=== PATIENT | female | born 1935 | race Caucasian/White ===

== ENCOUNTER 2016-10-04 10:14 | Inpatient (IN) | payer OTHER ==
[~2016-10-04] VITALS: Ht 170.2 cm; Wt 72.6 kg
[~2016-10-04 10:14] MED LIST: AMLODIPINE BESY10 M1 PO; LOVASTATIN40 M1 PO; PLAVIX75 M1 PO
--- NOTE | 2016-10-04 10:21 | NUR ---
CINDY FROM HOME AFTER CHIKING ON ENSURE THIS AM, HAS HAD DECREASED PO INTAKE X 1 WEEK. PT IS NON-VERBAL S/P CVA 209. ACCU CHECK [facility].
[2016-10-04 10:49] LABS: ABSOLUTE BASOPHIL COUNT 0.1 /CUMM (0.0-0.2); ABSOLUTE EOSINOPHIL COUNT 0 /CUMM (0.0-0.7); ABSOLUTE GRANULOCYTE CT 39.9 /CUMM (1.4-6.5); ABSOLUTE LYMPH COUNT 0.8 /CUMM (1.2-3.4); BASOPHIL % 0.2 % (0.0-2.0); EOSINOPHIL % 0.1 % (0-5); GRANULOCYTE % 95.4 % (42.2-75.2); HEMATOCRIT 37.6 % (37-47); MEAN CORPUSCULAR HGB 30.1 PG (27.0-31.0); MEAN CORPUSCULAR HGB CONC 34.3 G/DL (33.0-37.0); MEAN PLATELET VOLUME 10.2 FL (7.4-10.4); PLATELET COUNT 309 /CUMM (130-400); RBC DISTRIBUTION WIDTH 13.1 % (11.5-14.5); RED BLOOD CELL CT 4.28 /CUMM (4.20-5.40)
[2016-10-04 11:04] LABS: WHITE BLOOD CELL COUNT 41.8 /CUMM (4.8-10.8)
--- NOTE | 2016-10-04 11:04 | NUR ---
CRITICAL TEST RESULTS [id number] QUETA BAINS 81 F TESTS AND RESULTS: WBC 41.8 Results received and read back by: DICK MARC Results received date and time: 10/04/16 1104 The following provider was notified of the results, and read the results back: DR. SALMON Notified date and time: 10/04/16 at 1105
--- NOTE | 2016-10-04 11:27 | NUR ---
DR SALMON TO [facility].
--- NOTE | 2016-10-04 11:30 | ED DYSPNEA/ASTHMA COMPLAINT ---
History of Present Illness General Chief Complaint: General Adult Stated Complaint: BIBA S/P CHOKING Source: patient, old records, EMS Exam Limitations: unable to give history, COMPLETE APHASIA SECONDARY TO cva Vital Signs & Intake/Output Vital Signs & Intake/Output ED Intake and Output 10/06 0000 10/05 1200 Intake Total 500 Output Total Balance 500 Intake, IV 500 Number 1 Bowel Movements Allergies Coded Allergies: NO KNOWN ALLERGIES (03/27/16) Reconcile Medications Amlodipine Besylate 10 MG TABLET 1 TAB PO DAILY BP (Reported) Clopidogrel Bisulfate (Plavix) 75 MG TABLET 1 TAB PO DAILY BLOOD THINNER ( Reported) Lovastatin 40 MG TABLET 1 TAB PO DAILY CHOLESTEROL (Reported) Triage Note: BIBA FROM HOME AFTER CHIKING ON ENSURE THIS AM, HAS HAD DECREASED PO INTAKE X 1 WEEK. PT IS NON-VERBAL S/P CVA 209. [facility]U CHECK [facility]. Triage Nurses Notes Reviewed? yes HPI: Patient presents for evaluation of a choking episode that occurred prior to arrival. 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 Since the patient has had decreasing PO intake and has refused any solid food. Her nutritional intake and says primarily of liquid meal replacements and yogurt. Past History Travel History Traveled to [place] past 21 day No Medical History Any Pertinent Medical History? see below for history Neurological: dementia, CVA 2009 TIA 2013 EENT: NON-VERBAL Cardiovascular: hypertension Respiratory: NONE Gastrointestinal: diverticulitis, COLOSTOMY REVERSAL PARTIAL BOWEL RESECTION PEG TUBE REVERSAL Hepatic: NONE Renal: NONE Musculoskeletal: NONE Psychiatric: NONE Endocrine: NONE Blood Disorders: NONE Cancer(s): NONE History of MRSA: No History of VRE: No History of CDIFF: No Surgical History Surgical History: none Psychosocial History What is your primary language Surinamese Tobacco Use: Never used ETOH Use: denies use Family History Hx Contributory? No Review of Systems Review of Systems Constitutional: Reports: no symptoms. EENTM: Reports: no symptoms. Respiratory: Reports: see HPI. Cardiovascular: Reports: no symptoms. GI: Reports: no symptoms. Genitourinary: Reports: no symptoms. Musculoskeletal: Reports: no symptoms. Skin: Reports: no symptoms. Neurological/Psychological: Reports: no symptoms. Hematologic/Endocrine: Reports: no symptoms. Immunologic/Allergic: Reports: no symptoms. All Other Systems: Reviewed and Negative Physical Exam Physical Exam Respiratory: SEE BELOW Comments: Gen.: Well-nourished, well-developed, mild respiratory distress. Head: Normocephalic, atraumatic. Eyes: Normal inspection bilaterally Ears: Normal inspection bilaterally Nose: Normal inspection Throat/mouth : Moist mucosa Neck: Supple, full range of motion, no goiter, no stridor Heart: Regular rate and rhythm, no murmurs rubs or gallops Lungs: Clear to auscultation bilaterally with normal air entry Chest: Nontender Back: Normal range of motion Abdomen: Soft, nondistended, normal bowel sounds Extremities: equal radial pulses, no cyanosis clubbing or edema Neurologic: Cranial nerves grossly intact, unable to assess speech Skin: warm and dry Psychiatric:, Since, unable to assess due to dense aphasia Core Measures ACS in differential dx? No Severe Sepsis Present: No Septic Shock Present: No Progress Differential Diagnosis: ESOPHAGEAL FOOD IMPACTION, ASPIRATION Plan of Care: Orders Procedure Date/time Status OXYGEN 10/05 UNK Complete OXYGEN DAILY CHARGE 10/05 UNK Complete Diagnostic Imaging: Discussed w/RAD: CT Scan. Radiology Impression: PATIENT: QUETA BAINS PRESENT AGE: 81 PATIENT ACCOUNT NO: [id number] : 33 LOCATION: [facility] ORDERING PHYSICIAN: JOSE SALMON MD SERVICE DATE: 10/04/16 EXAM TYPE: CAT - CT ABD & PELVIS W/O IV CONTRAS; CT CHEST WO IV CONTRAST EXAMINATION: CT CHEST WITHOUT IV CONTRAST CT ABDOMEN AND PELVIS WITHOUT IV CONTRAST CLINICAL INFORMATION: 81-year-old female with choking episode, abdominal distention and aphasia. Presumptive diagnosis of bowel obstruction, aspiration and esophageal food impaction COMPARISON: Abdomen and pelvis CT, 08/21/2016 TECHNIQUE: Noncontrast, multidetector CT imaging examination of the chest, abdomen and pelvis was performed. Axial images are displayed at 5 mm and 0.625 mm slice thickness. Coronal and sagittal reformatted images were generated at the technologist's workstation and submitted for review. DLP: 334 mGy-cm FINDINGS: CHEST - LUNGS and PLEURA: The trachea and central airways are widely patent and normal in caliber. Within the lower lobes, posteriorly, there are patchy opacities that are new compared to 08/21/2016 -- probably a combination of atelectasis and consolidation. No interstitial pulmonary edema, pleural effusion or pneumothorax. There is a 0.3 cm noncalcified nodule at the right lung apex ( image 75, series 4. There is a 0.3 cm noncalcified nodule within the left upper lobe (image 155, series 4). MEDIASTINUM: There is mild cardiomegaly and mild atherosclerotic calcification of coronary arteries. The thoracic aorta is calcified and the ascending aorta measures up to 4 cm AP and 3.9 cm transverse. The esophagus has normal wall thickness and there is no evidence of food impaction within the esophageal lumen. Within the visualized lower neck, the thyroid gland is unremarkable. No pneumomediastinum. No pericardial effusion. LYMPHATICS: No pathologic sized axillary, hilar or mediastinal lymph nodes. CHEST WALL/BONES: Bone density is diffusely decreased. Osteoarthritis of both glenohumeral joints. No acute fracture or malalignment in the mildly degenerated thoracic spine. ABDOMEN AND PELVIS - HEPATOBILIARY: Liver has normal size, contour and parenchymal attenuation. No focal hepatic lesion observed on these noncontrast images. Gallbladder is unremarkable there is no intrahepatic or extrahepatic bile duct dilatation. PANCREAS: The pancreas is atrophied. No peripancreatic edema or pancreatic ductal dilatation. SPLEEN: Unremarkable. ADRENAL GLANDS: Unremarkable. KIDNEYS, URETERS, BLADDER: There is moderate atrophy of the right kidney without nephrolithiasis or hydronephrosis. The left kidney is normal in size and has a few cysts. The ureters are normal in caliber. The urinary bladder is unremarkable. GASTROINTESTINAL TRACT: The stomach has normal wall thickness. Small bowel is normal in caliber. Large amount of stool is present within the rectum which is distended to 9.2 cm transverse diameter. There is no rectal wall thickening or perirectal inflammatory change. There is an intact rectosigmoid anastomosis. ABDOMINAL WALL: There is chronic atrophy of the abdominal wall muscles and fascial weakness with broad area of bulging of the left abdominal wall. At the superior margin of the abdominal wall bulge, there is a fascial defect with herniation of fat and nondilated small bowel into the subcutaneous compartment (images 68-71, series 2). There is no evidence of bowel incarceration. VASCULAR: Atherosclerotic calcification of the tortuous abdominal aorta which measures up to 2.4 cm maximum AP diameter. LYMPH NODES: No pathologic sized lymph nodes within the abdomen or pelvis. PELVIC VISCERA: The uterus and adnexa are unremarkable. OSSEOUS STRUCTURES: There is multilevel facet osteoarthritis of the lumbar spine and there is 0.7 cm grade 1 anterolisthesis of L4 on L5. No suspicious bone lesions. IMPRESSION: 1. Compared to 08/21/2016, there are new patchy opacities in the lower lobes, likely a combination of atelectasis and pneumonia. No evidence of food impaction within the esophagus. 2. 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 3. Fecal impaction within the rectum without bowel obstruction. 4. Chronic atrophy/weakness of the abdominal wall musculature and fascia. Broad left-sided abdominal wall bulge is seen, as well as a more focal abdominal wall hernia containing fat and small bowel at the superior margin of the bulge. There is no evidence of bowel incarceration. 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 <Electronically signed in Other Vendor System> SIGNED BY: MUNA LEONARDO MD 10/04/16 1320 Initial ED EKG: SINUS TACHYCARDIA WITH A VENTRICULAR RATE OF 116 Prior EKG: unchanged (EXCEPT FOR RATE) Departure Departure Disposition: STILL A PATIENT Condition: Stable Clinical Impression Primary Impression: Pneumonia Qualifiers: Pneumonia type: aspiration pneumonia Aspiration pneumonia type: unspecified Laterality: bilateral Lung location: lower lobe of lung Qualified Code: J69.0 - Pneumonitis due to inhalation of food and vomit Secondary Impressions: Constipation Leukocytosis Qualifiers: Leukocytosis type: other Qualified Code: D72.828 - Other elevated white blood cell count Ventral hernia Qualifiers: Obstruction and gangrene presence: without obstruction or gangrene Qualified Code: K43.9 - Ventral hernia without obstruction or gangrene Referrals: JAYLA ROMO,FRANCESCA Baires (PCP/Family) Departure Forms: Customer Survey General Discharge Information Admission Note Spoke With: TANIYA ROMO,REMA Aragon Documentation of Exam: Documentation of any treatments & extenuating circumstances including Concerns Regarding Discharge (functional status, medication knowledge or non-compliance, living conditions, etc.) that warrant an admission rather than observation: Patient has multi lobar likely aspiration pneumonia with an associated profound leukocytosis. Given her advanced age and medical comorbidities I feel she is at very high risk of hypoxia, respiratory failure, sepsis and . She has had a very poor nutritional intake recently consisting of primarily liquids and yogurt. This has resulted in a poor functional capacity placing her at an even greater risk of poor outcome. I feel she now requires an aggressive management with IV antibiotics and close clinical monitoring of vital signs and pulse oximetry. The patient's what blood cell count should be monitored for improvement. If the white blood cell count does not improve then hematology oncology consultation should be considered along with infectious disease consultation. The patient's dense aphasia will make her care extremely challenging given the lack of history or review of systems by the patient. I feel her treatment and recovery will be prolonged and complicated. She will require a multiple day hospitalization. Critical Care Note Critical Care Note Critical Care Time: 30-74 min
--- NOTE | 2016-10-04 12:00 | NUR ---
MEDICATED WITH ATIVAN (SEE MAR)
--- NOTE | 2016-10-04 12:46 | NUR ---
PT STRAIGHT CATHED BY IRWIN Harry RN PT HAD 1100ML URINE OBTAINED. PT TO CAT.
--- NOTE | 2016-10-04 13:20 | CT SCAN REPORT ---
EXAMINATION: CT CHEST WITHOUT IV CONTRAST CT ABDOMEN AND PELVIS WITHOUT IV CONTRAST CLINICAL INFORMATION: 81-year-old female with choking episode, abdominal distention and aphasia. Presumptive diagnosis of bowel obstruction, aspiration and esophageal food impaction COMPARISON: Abdomen and pelvis CT, 08/21/2016 TECHNIQUE: Noncontrast, multidetector CT imaging examination of the chest, abdomen and pelvis was performed. Axial images are displayed at 5 mm and 0.625 mm slice thickness. Coronal and sagittal reformatted images were generated at the technologist's workstation and submitted for review. DLP: 334 mGy-cm FINDINGS: CHEST - LUNGS and PLEURA: The trachea and central airways are widely patent and normal in caliber. Within the lower lobes, posteriorly, there are patchy opacities that are new compared to 08/21/2016 -- probably a combination of atelectasis and consolidation. No interstitial pulmonary edema, pleural effusion or pneumothorax. There is a 0.3 cm noncalcified nodule at the right lung apex (image 75, series 4. There is a 0.3 cm noncalcified nodule within the left upper lobe (image 155, series 4). MEDIASTINUM: There is mild cardiomegaly and mild atherosclerotic calcification of coronary arteries. The thoracic aorta is calcified and the ascending aorta measures up to 4 cm AP and 3.9 cm transverse. The esophagus has normal wall thickness and there is no evidence of food impaction within the esophageal lumen. Within the visualized lower neck, the thyroid gland is unremarkable. No pneumomediastinum. No pericardial effusion. LYMPHATICS: No pathologic sized axillary, hilar or mediastinal lymph nodes. CHEST WALL/BONES: Bone density is diffusely decreased. Osteoarthritis of both glenohumeral joints. No acute fracture or malalignment in the mildly degenerated thoracic spine. ABDOMEN AND PELVIS - HEPATOBILIARY: Liver has normal size, contour and parenchymal attenuation. No focal hepatic lesion observed on these noncontrast images. Gallbladder is unremarkable there is no intrahepatic or extrahepatic bile duct dilatation. PANCREAS: The pancreas is atrophied. No peripancreatic edema or pancreatic ductal dilatation. SPLEEN: Unremarkable. ADRENAL GLANDS: Unremarkable. KIDNEYS, URETERS, BLADDER: There is moderate atrophy of the right kidney without nephrolithiasis or hydronephrosis. The left kidney is normal in size and has a few cysts. The ureters are normal in caliber. The urinary bladder is unremarkable. GASTROINTESTINAL TRACT: The stomach has normal wall thickness. Small bowel is normal in caliber. Large amount of stool is present within the rectum which is distended to 9.2 cm transverse diameter. There is no rectal wall thickening or perirectal inflammatory change. There is an intact rectosigmoid anastomosis. ABDOMINAL WALL: There is chronic atrophy of the abdominal wall muscles and fascial weakness with broad area of bulging of the left abdominal wall. At the superior margin of the abdominal wall bulge, there is a fascial defect with herniation of fat and nondilated small bowel into the subcutaneous compartment (images 68-71, series 2). There is no evidence of bowel incarceration. VASCULAR: Atherosclerotic calcification of the tortuous abdominal aorta which measures up to 2.4 cm maximum AP diameter. LYMPH NODES: No pathologic sized lymph nodes within the abdomen or pelvis. PELVIC VISCERA: The uterus and adnexa are unremarkable. OSSEOUS STRUCTURES: There is multilevel facet osteoarthritis of the lumbar spine and there is 0.7 cm grade 1 anterolisthesis of L4 on L5. No suspicious bone lesions. IMPRESSION: 1. Compared to 08/21/2016, there are new patchy opacities in the lower lobes, likely a combination of atelectasis and pneumonia. No evidence of food impaction within the esophagus. 2. 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 3. Fecal impaction within the rectum without bowel obstruction. 4. Chronic atrophy/weakness of the abdominal wall musculature and fascia. Broad left-sided abdominal wall bulge is seen, as well as a more focal abdominal wall hernia containing fat and small bowel at the superior margin of the bulge. There is no evidence of bowel incarceration.
[2016-10-04 14:21] LABS: PT 12.6 SEC (9.4-12.5); PTT 30 SEC (25-37)
--- NOTE | 2016-10-04 15:31 | History & Physical ---
ALEX SPARKS 10/04/16 1530: General Information and HPI MD Statement: I have seen and personally examined QUETA BAINS and documented this H&P. 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 Brought in by ambulance for episode of choking earlier today. Daughter who is the POA and niece at bedside provided most of the history. Stated that after the last admission they noticed deterioration since the past 4 weeks. She has been having decreasing by mouth intake. And she now currently is on liquid diet at home. Earlier today daughter notice a choking episode and this prompted her to bring her to the ED. Family also noted increased work of breathing yesterday. Family has also noticed that she has been very physically one month ago she was able to walk however she slowly stop walking and now is mostly bedbound and incontinent of urine and stool. No fever or productive cough noted. On interview patient was able to nod to communicate that she was having difficulty breathing and did not have any abdominal pain. Of note patient has not been able to have any further medications since the past few days as she either spits it out and does not swallow. Allergies/Medications Allergies: Coded Allergies: NO KNOWN ALLERGIES (03/27/16) Home Med list Amlodipine Besylate 10 MG TABLET 1 TAB PO DAILY BP (Reported) Clopidogrel Bisulfate (Plavix) 75 MG TABLET 1 TAB PO DAILY BLOOD THINNER ( Reported) Lovastatin 40 MG TABLET 1 TAB PO DAILY CHOLESTEROL (Reported) Compliance With Home Meds: GOOD Past History Travel History Traveled to [place] past 21 day No Medical History Neurological: dementia, CVA 2008 EENT: NON-VERBAL Cardiovascular: hypertension Respiratory: NONE Gastrointestinal: diverticulitis, COLOSTOMY REVERSAL PARTIAL BOWEL RESECTION PEG TUBE REVERSAL Hepatic: NONE Renal: NONE Musculoskeletal: NONE Psychiatric: NONE Endocrine: NONE Blood Disorders: NONE Cancer(s): NONE History of MRSA: No History of VRE: No History of CDIFF: No Surgical History Surgical History: none Past Family/Social History Psychosocial History Where do you live? Home Who Do You Live With? child Services at Home: Home Health Aide Smoking Status: Never Smoked ETOH Use: denies use Functional Ability ADLs Independent: dressing, eating, toileting, bathing. Ambulation: non-ambulatory IADLs Independent: shopping, housework, finances, food prep, telephone, transportation , medication admin. Review of Systems Review of Systems Constitutional: Reports: see HPI. Exam & Diagnostic Data Last 24 Hrs of Vital Signs/I&O Vital Signs Date Time Temp Pulse Resp B/P Pulse O2 O2 Flow FiO2 Ox Delivery Rate 10/04 1639 100.3 111 32 120/75 95 Room Air 10/04 1515 98.7 113 18 140/83 94 10/04 1234 117 32 133/79 90 Room Air 10/04 1210 96.6 115 18 124/71 94 10/04 1022 99.0 115 38 105/59 97 Room Air Intake & Output 10/04 1600 10/04 0800 10/04 0000 Intake Total 250 Output Total 1100 Balance -850 Intake, IV 250 Output, Urine 1100 Patient 160 lb Weight Physical Exam General Appearance Mild Distress, awake HEENT Atraumatic, PERRLA, EOMI, dry mucous membranes Neck Supple, No JVD, No thryomegaly Lymphatic Cervical nl Cardiovascular Normal S1, Normal S2 Lungs left lower crackles Abdomen Normal Bowel Sounds, Soft, No Tenderness Extremities No Edema Diagnostic Data EKG Results Sinus Tachycardia, RBBB Other Results CT ABD & PELVIS W/O IV CONTRAS; CT CHEST WO IV CONTRAST IMPRESSION: 1. Compared to 08/21/2016, there are new patchy opacities in the lower lobes, likely a combination of atelectasis and pneumonia. No evidence of food impaction within the esophagus. 2. 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 3. Fecal impaction within the rectum without bowel obstruction. 4. Chronic atrophy/weakness of the abdominal wall musculature and fascia. Broad left-sided abdominal wall bulge is seen, as well as a more focal abdominal wall hernia containing fat and small bowel at the superior margin of the bulge. There is no evidence of bowel incarceration. 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 MAXIMUM TEMPERATURE 100.3, WBC 41.8 with left shift and no bandemia, elevated BUN and creatinine. Imaging showing new patchy opacities in the lower lobes, fecal impaction within rectum without bowel obstruction. As Ranked By This Provider Problem List: 1. Aspiration pneumonia Assessment/Plan febrile with elevated WBC will start IV unasyn pending BC and sensitivities 2. THOMAS (acute kidney injury) Assessment/Plan most likely pre renal azotemia due to poor PO intake elevated ALP and transaminitis will hydrate with IVF and continue to monitor 3. Fecal impaction Assessment/Plan per daughter she had and episode of diarrhea two days ago will reasses the need for bowel regimen if she continues to be constipated 4. DVT prophylaxis Assessment/Plan sc heparin 5. DNR (do not resuscitate) 6. DNI (do not intubate) Core Measures/Miscellaneous Acute Coronary Syndrome ACS Diagnosis: No Cerebrovascular Accident CVA/TIA Diagnosis: No Congestive Heart Failure CHF Diagnosis: No Venous Thromboembolism VTE Risk Factors: Age > 40, Immobility, paresis VTE Prophylaxis Ordered Inpt: Pharm- Heparin No Mech VTE prophylaxis d/t: No contraindications No VTE Pharm Prophylaxis d/t: No contraindications VTE Diagnosis: No VTE Type: NONE VTE Confirmed by (Test): NONE Severe Sepsis Severe Sepsis Present: No Septic Shock Septic Shock Present: No Miscellaneous Documentation Attending Case Discussed With: REMA MONAHAN MD Primary Care Physician: FRANCESCA DICKERSON MD Patient sees these Specialists None Level of Patient Care: General Medicine KIP SARABIA MDVITHA 10/04/161937: Resident Review Statement Resident Statement: examined this patient, discussed with grinder set up operator internal, agreed with grinder set up operator internal, discussed with family, reviewed EMR data (avail) Other Findings: 81-year-old female with past medical history of hypertension, CVA in 2008 with aphasia, hyperlipidemia presented to the ED after a choking episode this morning. This morning the daughter noticed that she has been choking on liquids and was found to be in respiratory distress Patient lives with his daughter who is the caregiver. Patient was recently admitted in [facility] for diarrhea and urinary tract infection. According to the daughter she has been declining rapidly since then. Has been not able to eat solids and has been on liquids over the last 1 month. Also complains of poor by mouth intake within the same period of time. Even though she is nonverbal patient is able to move her extremities which also has declined over the same period of time. Today can be examined her she was able to answer simple questions by nodding her head. Nonverbal at baseline. On examination Patient awake, in mild distress HEENT: Pupils equal and reactive, dry mucous membrane next and respiratory: Bilateral rhonchi present, crackles present in the left lung base Cardio vascular: S1, S2 regular, no murmurs Abdomen: Soft, nontender Extremities: No pedal edema Neurology: And obtain a limited to clinical presentation next Pertinent labs: WBC 41.8, BUN 99, creatinine 2.3, total bilirubin 2.6, AST ALT 104, 214. CT showed left lower lobe opacity Assessment and plan 1. Leukocytosis secondary to pneumonia as evidenced in the CAT scan: We will admit the patient to general medical floor. Will start her on Unasyn 3000 every 12, renally adjust pending blood sputum and urine cultures. We'll start her on IV fluids D5 half normal saline at 100 mL an hour. TRC nebulizes. 2. Altered mental status secondary to septemia/pneumonia: Will keep patient nothing by mouth, swallow eval in a.m., head and admission, aspiration precautions. Avoid benzos. If mentation versus would consider getting CAT scan of the head. IV fluids as mentioned above. 3. Acute on chronic kidney disease: See due to prerenal. Will hydrate. Patient has h/o stage III CKD. Follow-up creatinine in a.m. 4. Transaminitis: With elevated total bilirubin: Etiology unclear could be secondary to dehydration Will recheck LFTs in a.m. 5. History of stroke: Will hold Plavix as patient nothing by mouth. 6. Hypertension and hyperlipidemia Will hold both her medications and restart once cleared by swallow. DNR/DNI DVT prophylaxis with heparin REMA MONAHAN 10/08/16 1320: Attending MD Review Statement Attending Statement Attending MD Statement: examined this patient, discuss w/resident/PA/UNDER SEAL OPERATOR, agreed w/resident/PA/UNDER SEAL OPERATOR, discussed with family, reviewed EMR data (avail) Attending Assessment/Plan: Please see my separate attending note from day of admission for more details.
--- NOTE | 2016-10-04 16:20 | NUR ---
HOUSE STAFF TO JONAS.
--- NOTE | 2016-10-04 16:28 | NUR ---
PT HAS BED ASSIGNMENT 219-2
--- NOTE | 2016-10-04 17:00 | NUR ---
REPORT CALLED, TRANSPORT CALLED.
[2016-10-04 18:28] VITALS: BP 116/64
--- NOTE | 2016-10-04 19:43 | Admission Certification ---
Admission Certification Certification Statement - As attending physician, I certify that at the time of - admission, based on clinical presentation, severity of - symptoms, need for further diagnostic testing and - therapeutic interventions, and risk of adverse outcomes - without in-hospital treatment, in my clinical assessment, - this patient requires an acute hospital stay for a minimum - of two nights or longer. I have also considered psychsocial - factors such as support system, advanced age, financial - issues, cognitive issues, and failed out-patient treatments, - past re-admission history, safety of patient, and lack of - compliance as applicable. Specific rationale supporting this admission is: aspiration pneumonia and failure to thrive and Acute kidney injury.
--- NOTE | 2016-10-04 19:46 | PN- Att Addend ---
Attending MD Review Statement Attending Statement Attending MD Statement: examined this patient, discuss w/resident/PA/PAPER REWINDER OPERATOR, agreed w/resident/PA/PAPER REWINDER OPERATOR, discussed with family, reviewed EMR data (avail) Attending Assessment/Plan: aspiration pneumonia - anaerobic vs gram negative pneumonia. WBC of 41.8 with bandemia. Start on iv unasyn, NPO, IV fluids, swallow eval in am . D/w pts granddaughter at bedside the care plan. Pt does not want any artificial nutrition, would like to be comfort care if no improvement in swallowing. Acute on chronic renal failure -Azotemia with bun of 99 and cr of 2.3. IV fluids , recehck in am. Code status- dnr/dni d/w family the care plan.
[2016-10-04 20:33] VITALS: BP 140/60
--- NOTE | 2016-10-04 21:25 | RADIOLOGY REPORT ---
EXAMINATION: XR PORTABLE CHEST CLINICAL INFORMATION: Shortness of breath COMPARISON: Chest CT scan dated 10/04/2016 at 90 7:00 PM TECHNIQUE: Portable view of the chest was obtained. FINDINGS: The x-rays is taken with rotation toward the right side. There is mild cardiomegaly. Dilated tortuous thoracic aorta. The pulmonary vasculature is within normal limits. Pulmonary opacities at the lung bases can represent atelectatic changes. No large pleural effusions or pneumothorax. IMPRESSION: 1. Mild cardiomegaly. 2. Dilated tortuous thoracic aorta. 3. Bibasilar opacities, likely represent atelectatic changes. Clinical correlation for pneumonia is suggested.
[2016-10-04 23:52] VITALS: BP 140/62
--- NOTE | 2016-10-05 01:31 | NUR ---
1745 PATIENT ARRIVED TO FLOOR. PATIENT IS ALERT. DENIES CHEST PAIN. BED LOW AND LOCKED. CALL LIGHT WITHIN REACH ECONOMICS TEACHER AND RESPIRATORY THERAPY NOTIFIED ABOUT PATIENTS RESPIRATORY RATE AND HR WILL CONTINUE TO MONITOR
[2016-10-05 09:23] LABS: ABSOLUTE BASOPHIL COUNT 0 /CUMM (0.0-0.2); ABSOLUTE EOSINOPHIL COUNT 0 /CUMM (0.0-0.7); ABSOLUTE LYMPH COUNT 0.8 /CUMM (1.2-3.4); BASOPHIL % 0 % (0.0-2.0); EOSINOPHIL % 0 % (0-5)
[2016-10-05 10:14] LABS: ABSOLUTE GRANULOCYTE CT 41.4 /CUMM (1.4-6.5); ABSOLUTE MONOCYTE COUNT 0.6 /CUMM (0.10-0.60); MEAN CORPUSCULAR HGB 30.1 PG (27.0-31.0); MEAN CORPUSCULAR HGB CONC 33.5 G/DL (33.0-37.0); MEAN CORPUSCULAR VOLUME 89.7 FL (81.0-99.0); MEAN PLATELET VOLUME 10.5 FL (7.4-10.4); PLATELET COUNT 279 /CUMM (130-400); RBC DISTRIBUTION WIDTH 13.7 % (11.5-14.5)
[2016-10-05 10:30] LABS: WHITE BLOOD CELL COUNT 42.8 /CUMM (4.8-10.8)
[2016-10-05 10:31] LABS: HEMATOCRIT 32.3 % (37-47)
[2016-10-05 10:50] LABS: GRANULOCYTE % 96.6 % (42.2-75.2)
--- NOTE | 2016-10-05 12:42 | PN- Att Addend ---
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 Patient is aphasic and minimally responsive, and per family has had deterioration over the past month. In addition, labs show acute on chronic kidney injury with evidence of pre-renal azotemia. Had discussion with family at bedside. They reported that the patient had expressed in the past that she never wants artificial nutrition. Patient is DNR /DNI. Family is considering hospice placement. Family meeting will take place today. Laboratory Tests 10/05/16 0810: Anion Gap 16, Estimated GFR 16 L, BUN/Creatinine Ratio 36.8 H, Total Bilirubin 0.9, Direct Bilirubin 0.6 H, AST 45 H, ALT 76 H, Alkaline Phosphatase 163 H, Total Protein 5.9 L, Albumin 2.5 L, CBC w Diff NO MAN DIFF REQ, RBC 3.60 L, MCV 89.7, MCH 30.1, RDW 13.7, MPV 10.5 H, Gran % 96.6 H, Lymphocytes % 2.0 L, Monocytes % 1.4 L, Eosinophils % 0, Basophils % 0 L, Absolute Granulocytes 41.4 H, Absolute Lymphocytes 0.8 L, Absolute Monocytes 0.6, Absolute Eosinophils 0, Absolute Basophils 0, PUBS MCHC 33.5 10/04/16 1404: Anion Gap 16, Estimated GFR 20 L, BUN/Creatinine Ratio 43.0 H, Glucose 141 H, Calcium 8.9, Total Bilirubin 2.6 H, AST 40 H, ALT 104 H, Alkaline Phosphatase 214 H, Total Protein 7.0, Albumin 3.1 L, Globulin 3.9, Albumin/Globulin Ratio 0.8 L, PT 12.6 H, INR 1.20 H, APTT 30 1. Aspiration pneumonia 2. Acute on chronic kidney injury 3. Pre-renal azotemia 4. Aphasia 5. History of CVA 6. Neutrophilia (Leukemoid reaction) 7. Dysphagia Plan - Continue on general medicine - Speech and swallow evaluation - Will hold off on further blood tests and imaging until after family meeting - May continue IV hydration and Unasyn - Follow culture results - Hold on nephrology evaluation for now - Chest physiotherapy with suctioning for comfort - If secretions worsen may add scopolamine patch - Hospice referral - DVT PPx
--- NOTE | 2016-10-05 13:20 | PN- Housestaff ---
Subjective Follow-up For: Aspiration Deconditioning Dyspnea Subjective: Seen and examined patient continues to have decreased by mouth intake and tachypneic. nonverbal at baseline. Review of Systems Constitutional: Reports: see HPI. Objective Last 24 Hrs of Vital Signs/I&O Vital Signs Date Time Temp Pulse Resp B/P Pulse O2 O2 Flow FiO2 Ox Delivery Rate 10/05 0122 36 10/05 0000 96 Room Air 10/04 2352 98.7 114 28 140/62 96 10/04 2033 99.9 123 40 140/60 93 10/04 1828 98.8 114 28 116/64 95 10/04 1745 95 Room Air 10/04 1639 100.3 111 32 120/75 95 Room Air 10/04 1515 98.7 113 18 140/83 94 Intake & Output 10/05 1600 10/05 0800 10/05 0000 Intake Total 500 0 Output Total Balance 500 0 Intake, IV 500 Intake, Oral 0 Number 1 Bowel Movements Patient 160 lb Weight Physical Exam General Appearance: Alert, Mild Distress Cardiovascular: Normal S1, Normal S2 Lungs: bilateral crackles Abdomen: Soft, No Tenderness Current Medications: Current Medications Sig/Khalif Start time Last Medication Dose Route Stop Time Status Admin Acetaminophen 1,000 MG Q12P PRN 10/04 1745 AC 10/04 IV 2030 Ampicillin Sodium/ 3,000 MG Q12 10/04 2200 AC 10/05 Sulbactam Sodium IV 1025 Sodium Chloride 100 ML Azithromycin 500 MG ONCE ONE 10/04 1415 DC 10/04 Sodium Chloride 250 ML IV 10/04 1514 1423 Ceftriaxone Sodium 0 .STK-MED ONE 10/04 1416 DC .ROUTE Ceftriaxone Sodium 1,000 MG ONCE ONE 10/04 1415 DC 10/04 IV 10/04 1416 1423 Dextrose/Sodium 1,000 ML .[id number] 10/04 1730 DC 10/05 Chloride IV 10/05 1234 1028 Heparin Sodium 5,000 UNIT Q8 10/04 1728 TX 10/05 (Porcine) SC 0506 Patient Medication 1 UNIT ONE NR 10/04 1745 TX Teaching ED 10/04 1800 Patient Medication 1 UNIT ONE NR 10/04 1745 [facility] ED 10/04 1800 Last 24 Hrs of Lab/Imer Results Last 24 Hrs of Labs/Mics: Laboratory Tests 10/05/16 0810: Anion Gap 16, Estimated GFR 16 L, BUN/Creatinine Ratio 36.8 H, Total Bilirubin 0.9, Direct Bilirubin 0.6 H, AST 45 H, ALT 76 H, Alkaline Phosphatase 163 H, Total Protein 5.9 L, Albumin 2.5 L, CBC w Diff NO MAN DIFF REQ, RBC 3.60 L, MCV 89.7, MCH 30.1, RDW 13.7, MPV 10.5 H, Gran % 96.6 H, Lymphocytes % 2.0 L, Monocytes % 1.4 L, Eosinophils % 0, Basophils % 0 L, Absolute Granulocytes 41.4 H, Absolute Lymphocytes 0.8 L, Absolute Monocytes 0.6, Absolute Eosinophils 0, Absolute Basophils 0, PUBS MCHC 33.5 10/04/16 1404: Anion Gap 16, Estimated GFR 20 L, BUN/Creatinine Ratio 43.0 H, Glucose 141 H, Calcium 8.9, Total Bilirubin 2.6 H, AST 40 H, ALT 104 H, Alkaline Phosphatase 214 H, Total Protein 7.0, Albumin 3.1 L, Globulin 3.9, Albumin/Globulin Ratio 0.8 L, PT 12.6 H, INR 1.20 H, APTT 30 Microbiology 10/04 1733 LOWER RESP: Respiratory Culture - CAN Cancelled: SPECIMEN NOT RECEIVED IN LABORATORY 10/04 1733 LOWER RESP: Gram Stain - CAN Cancelled: SPECIMEN NOT RECEIVED IN LABORATORY 10/04 1404 BLOOD: Blood Culture - RES Assessment/Plan Assessment: 81 year old woman with past medical history significant for hypertension, 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 MAXIMUM TEMPERATURE 100.3, WBC 41.8 with left shift and no bandemia, elevated BUN and creatinine. Imaging showing new patchy opacities in the lower lobes, fecal impaction within rectum without bowel obstruction. Continues to have no by mouth intake and tachypneic at rest. Family meeting was had this morning with her daughters one of them her POA. They declined any invasive measures such as tube feeding, Farfan placement. They have decided to make the patient to hospice. Will obtain a hospice consult and patient to be made hospice today. Problem List: 1. THOMAS (acute kidney injury) 2. Leukocytosis 3. Aspiration pneumonia 4. Fecal impaction Pain Ratin Pain Location: Not applicable Pain Goal: Pain 4 or less Pain Plan: Current regimen Tomorrow's Labs & Rationales: None required
--- NOTE | 2016-10-05 13:25 | Discharge Summary ---
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 Admitted to [facility] on 10/04/2016 for episode of aspiration. Daughter who is the POA and niece at bedside provided most of the history. Stated that after the last admission they noticed deterioration since the past 4 weeks. She had been having decreasing by mouth intake and was on liquid diet at home. Family has also noticed that she has been very physically one month ago she was able to walk however she slowly stopped walking and now is mostly bedbound and incontinent of urine and stool. Denied fever or productive cough . On interview patient was able to nod to communicate that she was having difficulty breathing and did not have any abdominal pain. Vitals on admission: Tmax 100.3, pulse 111, respiratory rate 32, blood pressure 105/59, saturating 97 on room air Pertinent labs: WBC 41.8, BUN 99, creatinine 2.3, total bilirubin 2.6, AST ALT 104, 214. CT showed left lower lobe opacity Was admitted to the general medicine floor the following issues were addressed: Sepsis secondary to Aspiration pneumonia She was initially started on IV Unasyn and IV fluids. Day 2 of admission her elevated white count continued to persist and she had no by mouth intake. Despite IV hydration her creatinine and BUN worsened. Discussed with family regarding options of management in terms of nephro consult winters placement, imaging and tube feeds. Family meeting was done with her daughters and her daughter who is the POA. They wish to make patient hospice and did not want any invasive measures including Winters tube placement and tube feeds. Hospice was consulted. Complications: made hospice Allergies: Coded Allergies: NO KNOWN ALLERGIES (03/27/16) Significant Procedures: - CT ABD & PELVIS W/O IV CONTRAS; CT CHEST WO IV CONTRAST CHEST - LUNGS and PLEURA: The trachea and central airways are widely patent and normal in caliber. Within the lower lobes, posteriorly, there are patchy opacities that are new compared to 08/21/2016 -- probably a combination of atelectasis and consolidation. No interstitial pulmonary edema, pleural effusion or pneumothorax. There is a 0.3 cm noncalcified nodule at the right lung apex (image 75, series 4. There is a 0.3 cm noncalcified nodule within the left upper lobe (image 155, series 4). MEDIASTINUM: There is mild cardiomegaly and mild atherosclerotic calcification of coronary arteries. The thoracic aorta is calcified and the ascending aorta measures up to 4 cm AP and 3.9 cm transverse. The esophagus has normal wall thickness and there is no evidence of food impaction within the esophageal lumen. Within the visualized lower neck, the thyroid gland is unremarkable. No pneumomediastinum. No pericardial effusion. LYMPHATICS: No pathologic sized axillary, hilar or mediastinal lymph nodes. CHEST WALL/BONES: Bone density is diffusely decreased. Osteoarthritis of both glenohumeral joints. No acute fracture or malalignment in the mildly degenerated thoracic spine. ABDOMEN AND PELVIS - HEPATOBILIARY: Liver has normal size, contour and parenchymal attenuation. No focal hepatic lesion observed on these noncontrast images. Gallbladder is unremarkable there is no intrahepatic or extrahepatic bile duct dilatation. PANCREAS: The pancreas is atrophied. No peripancreatic edema or pancreatic ductal dilatation. SPLEEN: Unremarkable. ADRENAL GLANDS: Unremarkable. KIDNEYS, URETERS, BLADDER: There is moderate atrophy of the right kidney without nephrolithiasis or hydronephrosis. The left kidney is normal in size and has a few cysts. The ureters are normal in caliber. The urinary bladder is unremarkable. GASTROINTESTINAL TRACT: The stomach has normal wall thickness. Small bowel is normal in caliber. Large amount of stool is present within the rectum which is distended to 9.2 cm transverse diameter. There is no rectal wall thickening or perirectal inflammatory change. There is an intact rectosigmoid anastomosis. ABDOMINAL WALL: There is chronic atrophy of the abdominal wall muscles and fascial weakness with broad area of bulging of the left abdominal wall. At the superior margin of the abdominal wall bulge, there is a fascial defect with herniation of fat and nondilated small bowel into the subcutaneous compartment (images [id number], series 2). There is no evidence of bowel incarceration. VASCULAR: Atherosclerotic calcification of the tortuous abdominal aorta which measures up to 2.4 cm maximum AP diameter. LYMPH NODES: No pathologic sized lymph nodes within the abdomen or pelvis. PELVIC VISCERA: The uterus and adnexa are unremarkable. OSSEOUS STRUCTURES: There is multilevel facet osteoarthritis of the lumbar spine and there is 0.7 cm grade 1 anterolisthesis of L4 on L5. No suspicious bone lesions. IMPRESSION: 1. Compared to 08/21/2016, there are new patchy opacities in the lower lobes, likely a combination of atelectasis and pneumonia. No evidence of food impaction within the esophagus. 2. 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 3. Fecal impaction within the rectum without bowel obstruction. 4. Chronic atrophy/weakness of the abdominal wall musculature and fascia. Broad left-sided abdominal wall bulge is seen, as well as a more focal abdominal wall hernia containing fat and small bowel at the superior margin of the bulge. There is no evidence of bowel incarceration. XRY-PORTABLE CHEST XRAY FINDINGS: The x-rays is taken with rotation toward the right side. There is mild cardiomegaly. Dilated tortuous thoracic aorta. The pulmonary vasculature is within normal limits. Pulmonary opacities at the lung bases can represent atelectatic changes. No large pleural effusions or pneumothorax. IMPRESSION: 1. Mild cardiomegaly. 2. Dilated tortuous thoracic aorta. 3. Bibasilar opacities, likely represent atelectatic changes. Clinical correlation for pneumonia is suggested. Disposition Summary Disposition Principal Diagnosis: Aspiration pneumonia Additional Diagnosis: Acute kidney injury Leukocytosis Fecal impaction Hypertension Stroke Discharge Disposition: hospice - medical facilit Discharge Instructions General Discharge Information Code Status: Hospice Patient's Diet: regular Patient's Activity: bedbound Follow-Up Instructions/Appts: none Copies To: JAYLA ROMO,FRANCESCA Baires Attending MD Review Statement Documenting Attending: SHERICE KHAN MD
== END 2016-10-05 13:47 | disposition hospice, home (50) | DRG 871 ==
LOC: ENRESERVTM → ENRESERVDT → ERH 10:14 → ERHI 15:41 → 2NB 15:41
PROVIDERS: Emergency Medicine; Internal Medicine; ADMIT Internal Medicine
DX: A41.9 Sepsis, unspecified organism (principal); J69.0 Pneumonitis due to inhalation of food and vomit; N17.9 Acute kidney failure, unspecified; N18.3 Chronic kidney disease, stage 3 (moderate); I12.9 Hypertensive chronic kidney disease with stage 1 through stage 4 chronic kidney disease, or unspecified chronic kidney disease; K56.41 Fecal impaction; I69.320 Aphasia following cerebral infarction; E78.5 Hyperlipidemia, unspecified; Z51.5 Encounter for palliative care
CPT/HCPCS: 2NSBP; 84133; 84300; 74176; 81001; 82436; 82570; 87040; 87070; 87086; 87449; 87450; 93005; 93010; 96365; 96375; 99291; J0131; J0696; J1644; J7042

== ENCOUNTER 2016-10-05 13:55 | Inpatient (IN) | payer OTHER ==
[2016-10-06 06:37] VITALS: BP 100/50
--- NOTE | 2016-10-06 09:42 | PN- Att Addend ---
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 Brought in by ambulance for episode of choking on the day of admission. The patient oral intake had decreased significantly only taking ensure [employer]. She is reported to have lost weight. Patient has deteriorated significantly in the past one month, reported to be immobile with fecal and urine incontinency before admission. Allergies: NKA Review of Systems: Reports fever, chills, cough but denies lightheadedness, dizziness and blurring vision Past Medical History: Dementia, CVA with Aphasia, TIA 2013, HTN, diverticulitis Past Surgical History: Partial bowel resection, colostomy, PEG tube with reversal Family History: Non contributory Psychosocial History: , 8 children, lived with family. Functional Ability: Dependent on ADLs Exam and Diagnostic Data: Vital signs: T97.6 MI 84, RR 36 BP 104/72 Physical Exam: General: NAD, alert, non verbal hard to assess orientation, obeys command can squeeze hand Skin: No rashes HEENT: Dry mucous membranes Neck: no raised JVP, No palpable neck LN Heart: RRR, S1/S2 normal no murmurs Lungs: Clear lungs bilaterally, tachypneic, unlabored Abdomen: Soft, normal contour move with respiration, normal bowel sounds Neuro/Psych: alert and nonverbal. Obeys simple commands Extermities: No pitting edema, cyanosis or clubbing Labs/Imaging: WBC 43,[address]: Compared to 08/21/2016, there are new patchy opacities in the lower lobes, likely a combination of atelectasis and pneumonia. No evidence of food impaction within the esophagus. Assessment/Plan: 81 YO Female with extensive past medical history of dementia, CVA with aphasia and hypertension who presented with progressive decline, reduced functional capacity and incontinence after an episode of choking at home. She had imaging evidence of pneumonia. Patient has a living will that forbids artificial feeding. She failed swallow evaluation and after discussion with the family code status was changed to Hospice care. We will start the patient on compazine injection 10MG IV/Sub-Q PRN for nausea. Scopolamine patch 1.5mg Q72 PRN for oral secretions Rubinol 0.2MG Q4 PRN for respiratory secretions Morphine sulphate 1mg Q1HR PRN for respiratory distress or pain Haldol 0.5MG Q2 PRN for agitation Lorazepam 0.5mg Q2 PRN For anxiety or severe agitation
--- NOTE | 2016-10-07 08:45 | Discharge Summary ---
Visit Information Visit Dates Admission Date: 10/05/16 Discharge Date: 10/06/16 Hospital Course Course Attending Physician: SHERICE KHAN MD Primary Care Physician: FRANCESCA DICKERSON MD Hospital Course: 81 YO Female with extensive past medical history of dementia, CVA with aphasia and hypertension who presented with progressive decline, reduced functional capacity and incontinence after an episode of choking at home. She had imaging evidence of pneumonia. Patient has a living will that forbids artificial feeding. She failed swallow evaluation and after discussion with the family code status was changed to Hospice care. She was kept comfortable until she passed peacefully on 10/06/16. Allergies: Coded Allergies: NO KNOWN ALLERGIES (03/27/16) Disposition Summary Disposition Principal Diagnosis: Aspiration pneumonia Dysphagia Dementia Additional Diagnosis: Cerebrovascular accident with residual aphasia Hypertension Discharge Disposition: Discharge Instructions General Discharge Information Code Status: Hospice Patient's Diet: N/A Patient's Activity: N/A Follow-Up Instructions/Appts: N/A Copies To: FRANCESCA DICKERSON MD Attending MD Review Statement Documenting Attending: SHERICE KHAN MD
== END 2016-10-06 17:51 | disposition expired | DRG 179 ==
LOC: 2NA 13:55
PROVIDERS: ADMIT Internal Medicine
DX: J69.0 Pneumonitis due to inhalation of food and vomit (principal); R13.10 Dysphagia, unspecified; F03.90 Unspecified dementia, unspecified severity, without behavioral disturbance, psychotic disturbance, mood disturbance, and anxiety; I69.320 Aphasia following cerebral infarction; I10 Essential (primary) hypertension; Z51.5 Encounter for palliative care
CPT/HCPCS: 2NAP; 87086